=== PATIENT | female | born 1955 | race Caucasian/White ===

== ENCOUNTER 2023-02-26 11:16 | Outpatient (CLI) | payer MEDICARE, SELFPAY ==
--- NOTE | 2023-02-26 11:26 | XRR_ITS ---
PROCEDURE INFORMATION: Exam: XR Bilateral Hips Exam date and time: 02/26/2023 11:33 AM Age: 67 years old Clinical indication: Hip pain; Bilateral; Additional info: M25.551 - pain in right hip TECHNIQUE: Imaging protocol: Radiologic exam of the bilateral hips. Views: 2 views of hips with pelvis when performed. COMPARISON: No relevant prior studies available. FINDINGS: Bones/joints: No acute fracture. Moderate to severe DJD of the hips with joint space narrowing, subchondral sclerotic change, and marginal osteophyte formation. Soft tissues: Unremarkable. XR/XR hip BI 3-4V wo/w pel [id number] IMPRESSION: No acute findings. 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
== END 2023-02-26 11:17 | disposition home or self-care (01) ==
LOC: RAD 11:19
PROVIDERS: PCP Nurse Practitioner Family; Visit Provider Nurse Practitioner Family
DX: M16.0 Bilateral primary osteoarthritis of hip (principal)
CPT/HCPCS: 73522

== ENCOUNTER → 2023-03-18 10:43 | Outpatient (BNVA) | payer MEDICARE, SELFPAY | PROVIDERS: PCP Nurse Practitioner Family; Visit Provider Orthopaedic Surgery | DX: M16.11 Unilateral primary osteoarthritis, right hip (principal) | CPT/HCPCS: 99203 ==

== ENCOUNTER 2023-04-13 14:59 | Observation (INO) | payer MEDICARE, SELFPAY ==
[2023-04-03 10:19] VITALS: BMI 27.3
--- NOTE | 2023-04-03 13:47 | ANES.PREANE2 ---
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 Musc/skel Osteoarthritis/DJD Anesthetic Plan ASA status: 2 Anesthesia: Regional (specify below) (spinal) Other: CBC day of surgery with type and screen Patient declines oxycodone Risk of > 500 ml blood loss (7ml/kg in children): Yes, adequate IV access and fluids planned Medications/Allergies Home Medications Medication Instructions Recorded Confirmed Last Taken Type aspirin 325 mg tablet 325 mg PO BID 02/26/23 04/03/23 04/03/23 History ibuprofen 200 mg capsule 200 mg PO Q6H PRN Pain 02/26/23 04/03/23 04/03/23 History Allergies Allergy/AdvReac Type Severity Reaction Status Date / Time diphtheria,pertussis,tetanus, Allergy dizziness Verified 04/03/23 10:18 Haem. PFSH Anesthesia Family History Mother Stroke Father Dementia Social History Smoking and tobacco status: former smoker Second hand smoke exposure: No Smoking risk assessment/counseling performed?: No Alcohol intake: never Desire information about alcohol rehabilitation?: No Counseling given: No Substance/Drug Use: never Desire information about substance/drug rehabilitation?: No Counseling given: No Adopted: No Caregiver/support person: No Lives independently: Yes Household members: none Housing: House Marital status: Single Number of children: 2 service: No Data Anesthesia Cardiac Studies: No Data to Display
[2023-04-13] VITALS (16 sets, daily range): BP systolic 101–143; BP diastolic 60–84; PULSE 48–66; RESP 16–18; TEMP 36.1–36.7; O2SAT 92–100; BMI 27.3
--- NOTE | 2023-04-13 09:49 | W.PM.OPSFHP ---
Same Day Surgery H&P Indication for Procedure/HPI DATE OF PROCEDURE: April 13, 2023 CHIEF COMPLAINT/INDICATIONFOR SURGICAL PROCEDURE: Osteoarthritis right hip PREOP DIAGNOSIS: Osteoarthritis right hip PLANNED PROCEDURE: Operation Date: 04/13/23 11:50 Proposed Procedures p right total hip arthroplasty/ 07022,M16.11(Right) - Trace Cutler MD 70-year-old here for right total hip arthroplasty she describes pain in her anterior and posterior hip.? She states is worse with weightbearing.? 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 She has painless prolonged periods of time on her feet.? She is taken ibuprofen and aspirin which are no longer giving her a large amount of improvement.? She actually states that 7 years ago hip replacement was discussed and she felt she was not ready.? She now states that she is certain that this is the way she wishes to proceed Medications/Allergies* Home Medications Medication Instructions Recorded Confirmed Type aspirin 325 mg tablet 325 mg PO BID 02/26/23 04/03/23 History ibuprofen 200 mg capsule 200 mg PO Q6H PRN Pain 02/26/23 04/03/23 History Allergies/Adverse Reactions Allergy/AdvReac Type Severity Reaction Status Date / Time diphtheria,pertussis,tetanus, Allergy dizziness Verified 04/03/23 10:18 Haem. Pertinent History/Comorbid Conditions* Family History (Updated 02/26/23 @ 09:24 by Amy Zabala LPN) Dementia Father Stroke Mother Social History Smoking and tobacco status: former smoker Second hand smoke exposure: No Smoking risk assessment/counseling performed?: No Alcohol intake: never Desire information about alcohol rehabilitation?: No Counseling given: No Substance/Drug Use: never Desire information about substance/drug rehabilitation?: No Counseling given: No Adopted: No Caregiver/support person: No Lives independently: Yes Household members: none Housing: House Marital status: Single Number of children: 2 service: No Pertinent Exam Findings alert, oriented x 3, clear to auscultation bilaterally, regular rate & rhythm, operative site marked and procedure specific exam findings HIP,RIGHT RANGE OF MOTION:??? No tenderness?EXAMINED HIP ? Flexion: 90 ? Extrenal Rotation:20 ? Internal Rotation:10 ?CONTRALATERAL HIP: Identical Pain with extremes of motion of both hips MOTOR: Strong quadriceps hamstrings tibialis anterior and extensor houses longus strength SENSATION: Intact to light touch Recommendations Surgery/Procedure today Coding Level of Care Code Acute Code for Chg Fwd Diagnoses
--- NOTE | 2023-04-13 10:21 | P.ANESUD_ITS ---
Pre-Anesthetic Update Pre-Anesthetic Assessment: Date of Surgery/Procedure: 04/13/23 Preop Jacki gnosis: Osteoarthritis right hip Proposed Procedure: Operation Date: 04/13/23 11:50 Proposed Procedures p right total hip arthroplasty/ 75814,M16.11(Right) - Trace Cutler MD Any changes to Pre-Anesthetic Assessment?: No Last Intake: > 8hrs Vitals: Temperature 98.1 F 04/13/23 10:09 Temperature Source Temporal Artery S can 04/13/23 10:09 Pulse Rate 52 L 04/13/23 10:09 Respiratory Rate 18 04/13/23 10:09 Blood Pressure 141/61 04/13/23 10:09 Blood Pressure Lianne n 87 04/13/23 10:09 Pulse Oximetry 97 04/13/23 10:09 Oxygen Delivery Me thod Room Air 04/13/23 10:09 Exam: Pre-Anes Outpt Exam: alert, oriented x 3, clear to auscultation bilaterally and regular rate & rhythm Cardiac Studies: No Data to Display
[2023-04-13] MEDS: sodium chloride 0.9% 1,000 ML 30 ML IV (10:53)
[2023-04-13 10:56] LABS: Basophils % 0.6 %; Eosinophils # 0.3 10^3/uL (0.0-0.8); Hematocrit 37.9 % (37.0-47.0); Hemoglobin 12.3 g/dL (11.5-15.3); Lymphocytes # 2.2 10^3/uL (0.8-4.8); Lymphocytes % 34.7 %; Mean Corpuscular HGB Conc 32.5 g/dL (30.0-36.0); Mean Corpuscular Hemoglobin 30.1 pg (28.0-34.0); Mean Corpuscular Volume 92.9 fl (81-99); Mean Platelet Volume 10.4 fL (7.4-10.4); Monocytes # 0.5 10^3/uL (0.2-0.9); Monocytes % 7.6 %; Neutrophils # 3.29 10^3/uL (1.8-7.7); Neutrophils % 51.9 %; Nucleated Red Blood Cells % 0 %; Platelet Count 240 10^3/cmm (130-400); Red Blood Count 4.08 10^6/uL (4.1-5.3); Red Cell Distribution Width 12.9 % (12.1-15.1); White Blood Count 6.3 10^3/uL (4.0-10.0)
[2023-04-13] MEDS: CELEcoxib 200 mg Capsule 400 MG PO (10:59)
[2023-04-13] MEDS: gabapentin 300 mg Capsule PO ×2 (11:00→17:44)
[2023-04-13] MEDS: acetaminophen 500 mg Tablet 1000 MG PO ×2 (11:00→17:44)
--- NOTE | 2023-04-13 12:14 | ECG_ITS ---
[facility] Test Date: 2023-04-13 Pat Name: Jewell Cox Department: Room: Gender: Female Hospital Pharmacist: : 1955 Requested By: Emilia Bethea Order Number: [id number] Compa MD: Prerna Bae M.D. Measurements Intervals [place] Rate: 45 P: 53 NC: 152 QRS: -40 QRSD: 120 T: 19 QT: 459 QTc: 400 Interpretive Statements SINUS BRADYCARDIA LEFT AXIS DEVIATION [QRS AXIS < -30] POSSIBLE RIGHT VENTRICULAR CONDUCTION DELAY [RSR (QR) IN V1/V2] MINIMAL VOLTAGE CRITERIA FOR LVH, CONSIDER NORMAL VARIANT [MEETS CRITERIA IN ONE OF: R(aVL), S(V1), R(V5), R(V5/V6)+S(V1)] POSSIBLE LATERAL MYOCARDIAL INFARCTION , OF INDETERMINATE AGE [30 ms Q WAVE IN I/aVL/V5/V6] No previous ECG available for comparison Electronically Signed On 04-14-2023 0:28:17 CDT by Prerna Bae M.D. [id number]
[2023-04-13] MEDS: ceFAZolin 2,000 MG in sodium chloride 0.9% (plus) 50 ML 100 MG IV ×2 (12:35→20:25)
[2023-04-13] MEDS: tranexamic acid 1,000 mg/10mL SDV 1000 MG IV (13:20)
--- NOTE | 2023-04-13 14:38 | XRR_ITS ---
PROCEDURE INFORMATION: Exam: XR Right Hip Exam date and time: 04/13/2023 1:55 PM Age: 67 years old Clinical indication: Device placement; Other: Total hip arthroplasty; Prior surgery; Surgery date: Post-operative (0-2 days) TECHNIQUE: Imaging protocol: Radiologic exam of the right hip. Views: 1 view hip with pelvis when performed. COMPARISON: CR XR hip BI 3-4V wo/w pel [id number] 02/26/2023 11:33 AM FINDINGS: Bones/joints: Patient has undergone right hip arthroplasty with placement of a bipolar right hip prosthesis that appears in satisfactory position within the left hip joint. The hardware is intact. There is no periprosthetic fracture. Soft tissues: There is soft tissue air surrounding the right hip joint from recent surgery. XR/XR hip RT 1V wo/w pel [id number] IMPRESSION: Recent right hip replacement in satisfactory position.
--- NOTE | 2023-04-13 14:39 | P.OP_ITS ---
Operative Report Date of procedure: April 13, 2023 Pre-op diagnosis: Preop Diagnosis Osteoarthritis right hip Post-op diagnosis: same Post-op diagnosis: Same Procedure done: Right total hip arthroplasty Implants: 1) [place] 52 mm Trident 2 solid back acetabular shell 2) Size 6 [place] 127 degree neck angle Accolade 2 stem 3} 28mm -2.7 standard ceramic femoral head 4} E MDM metal liner Pathology: none sent Surgeon: Trace Cutler Agricultural Extension Officer: Rajinder Stratton Agricultural Extension Officer: The nurse practitioner assisted with critical portions of the case including positioning, exposure, implantation of components, closure, and postoperative abduction pillow application. Anesthesia: General Estimated blood loss (mL): 150 Findings: Severe degenerative changes right hip with eburnation of the femoral head and peripheral femoral osteophytes Condition: stable Disposition: PACU Brief History: 10-year-old female with progressive right hip pain worse with activity attributable to osteoarthritis. Here for total hip arthroplasty Procedure: The patient was taken to the operating room and anesthesia provided by the anesthesia service. The patient was placed in the lateral position on a pegboard. A timeout was performed. The patient was draped in the usual fashion. A 15 cm long incision was made beginning just proximal to the greater trochanter and extending posteriorly to a point just distal to the trochanter on the posterior border of the trochanter. Dissection was carried down with electrocautery through the subcutaneous fat to the fascia hilda which was divided proximally and distally with curved scissors. The anterior two thirds of the gluteus medius and minimus were elevated off the hip with electrocautery. The capsule was divided in a H-like fashion. The hip was dislocated and a neck cut made just above the level of the lesser trochanter. Exposure of the acetabulum was facilitated with the acetabular retractors. Remnants of labrum and peripheral osteophytes were removed with electrocautery and a rongeur. A reamer 2 mm under the size the femoral head was utilized to ream medially to the base of the palm and are. Reaming was then increased in 1 mm intervals until a healthy rim a trabecular bone was encountered. The rim was touched with the reamer the size of the final acetabular shell to be placed. A final Trident 2 acetabular cup of the same size as the final reaming was press- fit into place. The ADM liner was secured. Attention was then focused on the femur. The canal was localized with a canal finder. Broaching was then accomplished until a stable broach size was obtained. A trial reduction with the head and neck provided excellent stability. The wound was irrigated with saline and antibiotic solution. The final Chyna Accolade II stem was press-fit into place. The femoral head was placed and the hip was reduced. The hip was brought through range of motion and found to be free of impingement and stable. The anterior capsule was reapproximated with 1 Ethibond. The gluteus medius and minimus were repaired through bone with 5 Ethibond and reinforced with 1 Ethibond. The fascial hilda was closed with a running 0 Stratafix suture. Deep pelvic tissues were closed with 2-0 Stratafix and the skin with a running 4-0 l Stratafix. The skin was covered with a Prineo dressing and op site dressings.
--- NOTE | 2023-04-13 15:27 | ANE.PACU2 ---
Inpatient post-anesthesia follow up: Airway intact: Yes Vital signs: Temperature 97.1 F Pulse Rate 53 Respiratory Rate 16 Blood Pressure 107/60 Pulse Oximetry 92 Oxygen Delivery Me thod Room Air Oxygen Flow Rate 6 Fraction of Inspir ed Oxygen Hydration adequate: Yes Nausea and vomiting: No Pain level: 1 Mental status: Baseline
[2023-04-13] MEDS: aspirin 325 mg Tablet PO (17:44)
[2023-04-13] MEDS: sennosides-docusate Tablet 2 TAB PO (17:44)
[2023-04-13] MEDS: sodium chloride 0.9% 1,000 ML 100 ML IV ×2 (17:47→22:59)
[2023-04-13] MEDS: oxyCODONE 5 mg IR Tab/Cap PO ×2 (18:56→22:58)
[2023-04-13] MEDS: CELEcoxib 200 mg Capsule PO (22:58)
[2023-04-14] VITALS (7 sets, daily range): BP systolic 111–125; BP diastolic 65–76; PULSE 62–69; RESP 17–18; TEMP 36.5–37.1; O2SAT 92–97
[2023-04-14] MEDS: ceFAZolin 2,000 MG in sodium chloride 0.9% (plus) 50 ML 100 MG IV ×2 (04:13→11:59)
[2023-04-14] MEDS: acetaminophen 500 mg Tablet 1000 MG PO ×2 (04:13→10:36)
[2023-04-14] MEDS: oxyCODONE 5 mg IR Tab/Cap PO (04:18)
[2023-04-14 05:43] LABS: Hemoglobin 10.9 g/dL (11.5-15.3)
[2023-04-14] MEDS: aspirin 325 mg Tablet PO (08:29)
[2023-04-14] MEDS: sennosides-docusate Tablet 2 TAB PO (08:30)
[2023-04-14] MEDS: gabapentin 300 mg Capsule PO (08:31)
[2023-04-14] MEDS: sodium chloride 0.9% 1,000 ML 100 ML IV (09:23)
--- NOTE | 2023-04-14 09:51 | P.DS_ITS ---
Discharge Providers Date of Admission: 04/13/23 14:59 Date of Discharge: April 14, 2023 Attending Provider at Admission: Trace Foy MD Attending Provider at Discharge: Trace Foy MD Primary Care Provider: LEVI Mckenna Reason for Visit 2 Reason for Visit: M16.11 Brief History: 67-year-old female with progressive right hip pain unresponsive to medications and conservative measures. Admitted for elective right total hip arthroplasty Hospital Course Hospital Course The patient tolerated surgery well. They remained hemodynamically stable. They was begun on aspirin and sequential compression dressings for DVT prophylaxis. The patient was mobilized with therapy beginning the day of surgery and by the first postoperative day she had some hypotension initially went up with therapy but ultimately was independent with the walker. As the pain was adequately controlled and they were fully mobile they were discharged home. Physical Exam Narrative: On the day of discharge the hip incision was clean. The incision was free of drainage. They had no particular swelling about the thigh or distal. No distal neurovascular deficits were noted. Urinary Catheter Management: [place]: Cath Placed During This Visit: yes, but has since been removed by the nurse Reason for Continuing Indwelling Catheter: Required Immobilization for Trauma or Surgery or Anesthesia Urinary Catheter Date of Insertion: 04/13/23 Urinary Catheter Time of Insertion: 13:15 Date Urinary Catheter Removed: 04/14/23 Time Urinary Catheter Discontinued: 06:30 Discharge Data Studies Completed and Pending Completed Studies During Hospitalization Category Date Time Status XR hip RT 1V wo/[place] pel [id number] Routine Exams 04/13/23 14:38 Completed Pending at discharge Category Date Time Status Retype for Patiets ABO/Rh Routine Lab 04/13/23 11:52 Received Radiology Impressions Hip X-Ray 04/13/23 14:38 IMPRESSION: Recent right hip replacement in satisfactory position. Laboratory Results WBC 6.3 10^3/uL (4.0-10.0) 04/13/23 10:42 RBC 4.08 10^6/uL (4.1-5.3) L 04/13/23 10:42 Hgb 10.9 g/dL (11.5-15.3) L 04/14/23 05:18 Hct 37.9 % (37.0-47.0) 04/13/23 10:42 MCV 92.9 fl (81-99) 04/13/23 10:42 MCH 30.1 pg (28.0-34.0) 04/13/23 10:42 MCHC 32.5 g/dL (30.0-36.0) 04/13/23 10:42 RDW 12.9 % (12.1-15.1) 04/13/23 10:42 Plt Count 240 10^3/cmm (130-400) 04/13/23 10:42 MPV 10.4 fL (7.4-10.4) 04/13/23 10:42 Neut % (Auto) 51.9 % 04/13/23 10:42 Lymph % (Auto) 34.7 % 04/13/23 10:42 [place] % (Auto) 7.6 % 04/13/23 10:42 Eos % (Auto) 5.0 % 04/13/23 10:42 Baso % (Auto) 0.6 % 04/13/23 10:42 Neut # (Auto) 3.29 10^3/uL (1.8-7.7) 04/13/23 10:42 Lymph # (Auto) 2.2 10^3/uL (0.8-4.8) 04/13/23 10:42 [place] # (Auto) 0.5 10^3/uL (0.2-0.9) 04/13/23 10:42 Eos # (Auto) 0.3 10^3/uL (0.0-0.8) 04/13/23 10:42 Baso # (Auto) 0.0 10^3/uL (0.0-0.1) 04/13/23 10:42 Nucleated RBC % (auto) 0 % 04/13/23 10:42 Nucleated RBCs # 0.0 /100WBC 04/13/23 10:42 Blood Type B Positive 04/13/23 10:42 Rho(D) Type Positive 04/13/23 10:42 Antibody Screen Negative 04/13/23 10:42 Vitals Last Vital Signs Temp 97.7 F 04/14/23 08:38 Pulse 69 04/14/23 08:38 Resp 17 04/14/23 08:38 BP 122/65 04/14/23 08:38 Pulse Ox 95 04/14/23 08:38 O2 Del Method Room Air 04/14/23 08:38 O2 Flow Rate 6 04/13/23 14:46 Discharge Plan Discharge Patient Disposition: Home Condition: Stable Prescriptions: New oxycodone 5 mg Tablet 5 mg PO Q4H PRN (Reason: Moderate Pain) 7 Days Qty: 40 0RF acetaminophen 500 mg Tablet 1,000 mg PO Q8H 14 Days Qty: 84 0RF celecoxib 200 mg Capsule 200 mg PO Q12H 14 Days Qty: 28 0RF gabapentin 300 mg Capsule 300 mg PO BID 7 Days Qty: 14 0RF Continued aspirin 325 mg tablet 325 mg PO BID Held ibuprofen 200 mg capsule 200 mg PO Q6H PRN (Reason: Pain) Hold Instructions: Resume on 04/28/23. Discharge Orders: Discharge Order (Routine); Ordered 04/14/23 Ordered By: Trace Foy Other Ambulatory Orders: DME: [employer] (Order) Location: None Selected Ordered By: Trace Foy Physical Therapy Eval and Treat Outpatient (Order) Timeframe: 2 Days Facility: [facility] - Location: Physical Therapy [place] Ordered By: Trace Foy Referrals: Trace Foy MD [Physician] - 04/28/23 9:00 am Discharge Diet: Advance as tolerated Discharge Activity: Limit activity as instructed Patient Instructions: Opioid Safety Activity Restrictions/Additional Instructions: Okay to shower. No soaking incision in tub Apply FirstIce up to 20 min/hr for pain and swelling Take Celebrex twice a day for the next 15 days for pain , discontinue other anti-inflammatories Take Neurontin twice a day for 7 days. Take Tylenol 500mg (up to 2 tabs) 3 times a day for mild pain Take oxycodone for breakthrough pain. Exercises per physical therapy. May weight-bear as tolerated on total hip arthroplasty IF HAVE ANY PROBLEMS OR QUESTIONS CALL HOSPITAL MANAGER SURGERY AT AND ASK TO HAVE DR. FOY PAGELorie. Discharge Attestations Time Spent in Discharge Care*: other Quality Metrics Clinical Quality Measures [ No reported AMI, CVA or VTE this stay] Coding Level of Care Code Acute Code for Chg Fwd Diagnoses
--- NOTE | 2023-04-14 09:52 | PC.CHAP ---
Pastoral Care Encounter/Spiritual Assessment Type of Contact [] Declined kitman visit [] Patient/Family/Request visit [] Outpatient visit [] Follow-up visit [] Physician referral [] Code/Alert [x] Routine visit [] Staff referral [] Actively dying [] Patient sleeping [] Family support [] [] Out of room [] Palliative care [] [] Receiving care in room [] Pre-surgical visit [] Trauma [] Long length of stay [] ICU visit [] Other: Relational/Emotional Strength [x] Patient feels connected with others/family/visitors/staff [] Distress [] Loneliness/isolation [] Abandonment Spirituality of Patient [x] Person of Myrna [x] Attends Hoahaoism of their Myrna [x] Believes in Prayer [x] Reads Bible or Jainism materials [] There are Spiritual issues to be addressed Ager Operator Interventions [x] Prayer [x] Active listening [] Non-anxious presence [x] Spiritual/emotional support [] Crisis/trauma care [] Spiritual counseling [] Bereavement support [] Provided bereavement packet [] Provided Bible/devotional materials [] Provided toy/stuffed animal, coloring book to patient or family member [] Provided Communion [] Anointing/Pillow [] Salvation [x] Completed spiritual assessment [] Other: Impact on Illness or Injury [] Angry [] Fearful [] Anxious [] Often cries [] Exhaustion [] Unable to work [] Unable to attend taoism [] Unable to walk/stand [] Unable to read [] Unable to drive [] Unable to eat/drink [] Unable to sleep [] Unable to be with family [] Patient intubated [] Other: Summary Time spent with patient 10 min
[2023-04-14] MEDS: CELEcoxib 200 mg Capsule PO (10:36)
[2023-04-14] MEDS: ondansetron 2 mg/ML SDV 2 mL 4 MG IVP (11:29)
--- NOTE | 2023-04-14 14:44 | PC.NURSE ---
PATIENT AND GRAND DAUGHTER VERBALIZED UNDERSTANDING OF DISCHARGE INSTRUCTIONS, HOME MEDICATIONS AND FOLLOW UP APPOINTMENTS. PATIENT DECLINED TO FILL NARCOTIC PAIN MEDICATIONS, DISCUSSED WITH PATIENT PICKING UP THE PRESCRIPTION TO HAVE IT ON HAND JUST IN CASE. PATIENT CONTINUED TO DECLINE.
== END 2023-04-14 15:26 | disposition home or self-care (01) ==
LOC: MEDSURG 14:59
PROVIDERS: Anesthesiology; Admitting Provider Orthopaedic Surgery; PCP Nurse Practitioner Family; Visit Provider Orthopaedic Surgery
PROC: (CPT 27130; principal; 2023-04-13 11:50)
DX: M16.11 Unilateral primary osteoarthritis, right hip (principal); Z79.82 Long term (current) use of aspirin; Z87.891 Personal history of nicotine dependence; R00.1 Bradycardia, unspecified
CPT/HCPCS: 27130; 36415; 51702; 73501; 85018; 85025; 86850; 86900; 93005; 97110; 97116; 97162; 97166; 97535; C1776; G0378; J0690; J1580; J2250; J2405; J2704; J3010; J7030

== ENCOUNTER → 2023-04-28 08:42 | Outpatient (BNVA) | payer MEDICARE, SELFPAY | PROVIDERS: Visit Provider Orthopaedic Surgery | DX: Z96.641 Presence of right artificial hip joint (principal) | CPT/HCPCS: 99024 ==

== ENCOUNTER 2023-04-29 06:00 | Outpatient (RCR) | payer MEDICARE, SELFPAY | END 2023-04-29 23:59 | disposition home or self-care (01) | LOC: APT 06:00 | PROVIDERS: Visit Provider Orthopaedic Surgery | DX: Z47.1 Aftercare following joint replacement surgery (principal); Z96.641 Presence of right artificial hip joint | CPT/HCPCS: 97110; 97112; 97161 ==

== ENCOUNTER 2023-04-30 06:00 | Outpatient (RCR) | payer MEDICARE, SELFPAY | END 2023-05-29 23:59 | disposition home or self-care (01) | LOC: APT 06:00 | PROVIDERS: Visit Provider Orthopaedic Surgery | DX: Z47.1 Aftercare following joint replacement surgery (principal); Z96.641 Presence of right artificial hip joint | CPT/HCPCS: 97110 ==